=== PATIENT | female | born 1960 | race Two or more races ===

== ENCOUNTER 2024-12-02 06:23 | Emergency (ER) | payer OTHER ==
[~2024-12-02] VITALS: Ht 160 cm; Wt 64.9 kg
== END 2024-12-02 07:58 | disposition home or self-care (01) ==
LOC: ER 06:23
DX: S09.8XXA Other specified injuries of head, initial encounter (principal); W19.XXXA Unspecified fall, initial encounter; Y93.89 Activity, other specified; Y92.89 Other specified places as the place of occurrence of the external cause; Y99.8 Other external cause status; Z88.2 Allergy status to sulfonamides; Z88.8 Allergy status to other drugs, medicaments and biological substances